=== PATIENT | female | born 1995 | race Caucasian/White ===

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

== ENCOUNTER 2018-11-05 03:50 | Emergency (ER) | payer OTHER ==
[2018-11-05 04:03] VITALS: BP 120/73; PULSE 96; TEMP 99; BMI 22.6
[2018-11-05] MEDS ORDERED: KETOROLAC TROMETHAMINE 60 MG/2 ML VIAL IM ONE (04:08)
[2018-11-05] MEDS ORDERED: CYCLOBENZAPRINE HCL 10 MG TABLET (FP) PO ONE (04:08)
[2018-11-05] MEDS ORDERED: CYCLOBENZAPRINE HCL 10 MG TABLET (FP) ONE (04:09)
[2018-11-05] MEDS ORDERED: KETOROLAC TROMETHAMINE 60 MG/2 ML VIAL ONE (04:09)
--- NOTE | 2018-11-05 04:24 | PDOC ---
History of Present Illness - General Chief Complaint: Pain, Acute Stated Complaint: PAIN,RT LEG Time Seen by Provider: 11/05/18 04:04 History Source: Patient Exam Limitations: Clinical Condition - History of Present Illness Initial Comments: 11/05/18 04:19 Patient with no significant PMHx present with complains of cramping right thigh pain for 2 days which has been worsening since last night. Patient report she was playing around with family 2 days ago and does not know if she pulled something as she had mild thigh pain after but has not worsened. Patient report 10/10 cramping pain and in tears. Denies any other symptoms Timing/Duration: other (2 days) Past History - Past Medical History Allergies/Adverse Reactions: Allergies Allergy/AdvReac Type Severity Reaction Status Date / Time albuterol sulfate Allergy Mild Rash Verified 12/26/16 19:35 [From Ventolin HFA] Home Medications: Ambulatory Orders Ibuprofen [Motrin -] 600 mg PO TID #21 tablet 08/12/16 Methocarbamol [Robaxin -] 500 mg PO BID #14 tablet 11/05/18 Naproxen 500 mg PO BID PRN #20 tablet 11/05/18 Asthma: No Cancer: No Cardiac Disorders: No Diabetes: No HTN: No Seizures: No Thyroid Disease: No - Immunization History Immunization Up to Date: Yes - Suicide/Smoking/Psychosocial Hx Smoking Status: No Smoking History: Never smoked Have you smoked in the past 12 months: No Number of Cigarettes Smoked Daily: 2 If you are a former smoker, when did you quit?: 2 Information on smoking cessation initiated: No Hx Alcohol Use: No Drug/Substance Use Hx: No Substance Use Type: None Hx Substance Use Treatment: No Review of Systems - Review of Systems Able to Perform ROS?: Yes Is the patient limited Maldivian proficient: No Constitutional: No: Weakness HEENTM: No: Symptoms Reported Respiratory: No: Symptoms reported Cardiac (ROS): No: Symptoms Reported ABD/GI: No: Symptoms Reported Musculoskeletal: Yes: Symptoms Reported, See HPI, Muscle Pain (right thigh cramping pain). No: Joint Pain, Joint Swelling, Muscle Weakness, Joint Stiffness Integumentary: No: Symptoms Reported, Bruising, Change in Color, Flushing, Rash Neurological: No: Numbness, Paresthesia, Tingling All Other Systems: Reviewed and Negative *Physical Exam - Vital Signs Last Vital Signs Temp Pulse Resp BP Pulse Ox 99 F 96 H 20 120/73 99 11/05/18 03:53 11/05/18 03:53 11/05/18 03:53 11/05/18 03:53 11/05/18 03:53 - Physical Exam General Appearance: Yes: Nourished, Appropriately Dressed, Moderate Distress ED Treatment Course - Medications Given in the ED: ED Medications Discontinued Medications Generic Name Dose Route Start Last Admin Trade Name Issi PRN Reason Stop Dose Admin Cyclobenzaprine HCl 10 mg 11/05/18 04:08 11/05/18 04:11 Flexeril - PO 11/05/18 04:09 10 mg ONCE ONE Administration Ketorolac Tromethamine 60 mg 11/05/18 04:08 11/05/18 04:11 Toradol Injection - IM 11/05/18 04:09 60 mg ONCE ONE Administration Medical Decision Making - Medical Decision Making 11/05/18 04:21 Patient with no significant PMHx present with complains of cramping right thigh pain for 2 days which has been worsening since last night. Patient report she was playing around with family 2 days ago and does not know if she pulled something as she had mild thigh pain after but has not worsened. Patient report 10/10 cramping pain and in tears. Denies any other symptoms Exam significant for severe subjective pain to whole right thigh muscle . no knee or calf tenderness. no increased warmth or evidence of trauma to right thigh area. symptoms likely muscle spasm. Toradol 60mg IM and cyclobenzaprine 10mg PO given for pain and spasm. reassess after 20mins 11/05/18 05:33 Patient report improved pain with Toradol and flexiril. Patient stable for discharge on naproxen and robaxin with advise to apply hot compress to thigh. Pt request crutches to help with ambulation. Crutches given and pt stable for discharge *DC/Admit/Observation/Transfer Diagnosis at time of Disposition: Right thigh pain, Muscle spasm - Discharge Dispostion Disposition: HOME Condition at time of disposition: Stable Decision to Admit order: No - Prescriptions Prescriptions: Methocarbamol [Robaxin -] 500 mg PO BID #14 tablet Naproxen 500 mg PO BID PRN #20 tablet PRN Reason: pain - Referrals Referrals: Belle,Sourav A, DO [Staff Physician] - - Patient Instructions Printed Discharge Instructions: DI for Nocturnal Leg Cramps Additional Instructions: Take medications as prescribed. Apply heat to thigh area 2-3 times per day as needed for pain. rest thigh and use provided crutches as needed for ambulation. Come back to ED if worsening symptoms with severe pain otherwise follow-up with referred orthopedics as needed - Post Discharge Activity
--- NOTE | 2018-11-05 04:53 | PDOC ---
*Physical Exam - Vital Signs Last Vital Signs Temp Pulse Resp BP Pulse Ox 99 F 96 H 20 120/73 99 11/05/18 03:53 11/05/18 03:53 11/05/18 03:53 11/05/18 03:53 11/05/18 03:53 ED Treatment Course - Medications Given in the ED: ED Medications Discontinued Medications Generic Name Dose Route Start Last Admin Trade Name Freq PRN Reason Stop Dose Admin Cyclobenzaprine HCl 10 mg 11/05/18 04:08 11/05/18 04:11 Flexeril - PO 11/05/18 04:09 10 mg ONCE ONE Administration Ketorolac Tromethamine 60 mg 11/05/18 04:08 11/05/18 04:11 Toradol Injection - IM 11/05/18 04:09 60 mg ONCE ONE Administration Medical Decision Making - Medical Decision Making 11/05/18 04:53 Case discussed with LISSETT Carpenter Agree with assessment and plan *DC/Admit/Observation/Transfer Diagnosis at time of Disposition: Right thigh pain, Muscle spasm - Discharge Dispostion Disposition: HOME Condition at time of disposition: Stable - Prescriptions Prescriptions: Methocarbamol [Robaxin -] 500 mg PO BID #14 tablet Naproxen 500 mg PO BID PRN #20 tablet PRN Reason: pain - Referrals Referrals: Sourav Belle DO [Staff Physician] - - Patient Instructions Printed Discharge Instructions: DI for Nocturnal Leg Cramps Additional Instructions: Take medications as prescribed. Apply heat to thigh area 2-3 times per day as needed for pain. rest thigh and use provided crutches as needed for ambulation. Come back to ED if worsening symptoms with severe pain otherwise follow-up with referred orthopedics as needed - Post Discharge Activity
== END 2018-11-05 05:52 | disposition home or self-care (01) ==
LOC: JER 03:50
PROC: 3E0233Z Introduction of Anti-inflammatory into Muscle, Percutaneous Approach (ICD-10-PCS; principal; 2018-11-05)
DX: M79.651 Pain in right thigh (principal); M62.838 Other muscle spasm; Z72.0 Tobacco use
CPT/HCPCS: 96372; 99281-25

== ENCOUNTER 2023-03-04 09:31 | Emergency (ER) | payer OTHER ==
[2023-03-04 09:45] VITALS: BP 101/61; PULSE 62; RESP 18; TEMP 98.4; BMI 20.7
[2023-03-04] MEDS ORDERED: SODIUM CHLORIDE 1,000 ML IV ONE (10:06)
[2023-03-04] MEDS ORDERED: ACETAMINOPHEN INJECTION 100 ML IVPB ONE (10:32)
[2023-03-04] MEDS ORDERED: ACETAMINOPHEN 1000 MG/100 ML BAG IVPB ONE (10:42)
[2023-03-04 10:59] LABS: EOS % 0.9 % (0-4.5); HEMATOCRIT 39.4 % (32.4-45.2); HEMOGLOBIN 13.4 GM/dL (10.7-15.3); LYMPH % 42.9 % (8-40); MCH 28.9 pg (25.7-33.7); MCHC 33.9 g/dl (32.0-36.0); MEAN CELL VOLUME 85.2 fl (80-96); MEAN PLT VOLUME 7.5 fl (7.5-11.1); MONO % 6.8 % (3.8-10.2); NEUT % 48.4 % (42.8-82.8); PLATELET COUNT 287 10^3/uL (134-434); RBC 4.62 M/mm3 (3.60-5.2); RDW 14.6 % (11.6-15.6); WHITE BLOOD COUNT 3.5 K/mm3 (4.0-10.0)
[2023-03-04 11:03] LABS: HCG,QUALITATIVE URINE Negative
[2023-03-04 11:07] LABS: INR 1.1 (0.83-1.09); PROTHROMBIN TIME (PATIENT) 12.8 SEC (9.7-13.0)
[2023-03-04 11:09] LABS: ACTIVATED PTT 28.3 SECONDS (25.2-36.5)
[2023-03-04 11:10] LABS: EPI CELLS 14 /uL (0-25.1); HYALINE CASTS 0 /uL (0-3.1); URINE APPEARANCE CLEAR; URINE BACTERIA 79 /uL (0-1359); URINE BILIRUBIN NEGATIVE (NEGATIVE); URINE COLOR YELLOW; URINE GLUCOSE (UA) NEGATIVE (NEGATIVE); URINE KETONE TRACE (NEGATIVE); URINE LEUK ESTERASE NEGATIVE (NEGATIVE); URINE NITRITE NEGATIVE (NEGATIVE); URINE PROTEIN NEGATIVE (NEGATIVE); URINE RBC 753 /uL (0-23.9); URINE WBC 14 /uL (0-25.8)
[2023-03-04] MEDS ORDERED: DEXAMETHASONE SOD PHOSPHATE 10 MG/1 ML VIAL ONE (12:38)
[2023-03-04] MEDS ORDERED: AMOX TR/POT CLAV 500MG/125MG TABLETS (FP) ONE (12:38)
== END 2023-03-04 13:36 | disposition home or self-care (01) ==
LOC: JER 09:31
PROC: 3E033NZ Introduction of Analgesics, Hypnotics, Sedatives into Peripheral Vein, Percutaneous Approach (ICD-10-PCS; principal; 2023-03-04)
PROC: 3E0337Z Introduction of Electrolytic and Water Balance Substance into Peripheral Vein, Percutaneous Approach (ICD-10-PCS; 2023-03-04)
DX: O20.9 Hemorrhage in early pregnancy, unspecified (principal); Z3A.01 Less than 8 weeks gestation of pregnancy
CPT/HCPCS: 36415; 76830-TC; 81003; 84702; 84703; 85025; 85610; 85730; 86850; 86900; 86901; 99284-25